=== PATIENT | female | born 1985 | race Caucasian/White ===

== ENCOUNTER → 2018-08-08 20:46 | Outpatient (CLI) | payer BC, SELFPAY | PROVIDERS: Visit Provider Nurse Practitioner Family | DX: J02.9 Acute pharyngitis, unspecified (principal) ==

== ENCOUNTER 2020-11-26 16:30 | Emergency (ER) | payer BC, SELFPAY ==
[2020-11-26 16:31] VITALS: BP 116/59; PULSE 96; RESP 18; TEMP 36.8; O2SAT 95; BMI 26.1
[2020-11-26 16:46] VITALS: BP 100/66; BP 105/66; BP 97/66; PULSE 103; PULSE 87; PULSE 93
--- NOTE | 2020-11-26 16:58 | HMH.EDFEV ---
ED Disposition Clinical Impression: UTI (urinary tract infection) Qualifiers: Urinary tract infection type: acute cystitis Hematuria presence: with hematuria Qualified Code(s): N30.01 - Acute cystitis with hematuria Disposition: Home, Self-Care Condition on Discharge: Good Prescriptions: cefUROXime axetiL [Ceftin 250mg Tablet] 250 mg PO BID #14 tab Transmission Status: Pending to [facility] #[id number] Referrals: Wnedy Cruz PA [Primary Care Provider] - - Critical Care Critical Care Time: No Attestation: On 11/26/20, the high probability of a clinically significant, sudden or life threatening deterioration of the following system(s) required my full and direct attention, intervention and personal management. The time I documented below is in addition to time spent performing reported procedures but includes the following listed in this critical care notation. Medical Decision Making - Medical Records Medical records reviewed: Yes: I reviewed the patient's medical records. - Tim Inquiry Pt receiving controlled substance: No Vital Signs: 11/26/20 16:31 11/26/20 16:46 Temperature 0 F L Temperature Source Oral Pulse Rate [Left Radial] 96 H Pulse Rate [Orthostatic Lying Right Radial] 87 Pulse Rate [Orthostatic Sitting Right Radial] 93 H Pulse Rate [Orthostatic Standing Right Radial] 103 H Respiratory Rate 18 Blood Pressure [Left Arm] 116/59 L Blood Pressure [Orthostatic Lying Right Arm] 105/66 L Blood Pressure [Orthostatic Sitting Right Arm] 100/66 L Blood Pressure [Orthostatic Standing Right Arm] 97/66 L Blood Pressure Mean [Left Arm] 78 Blood Pressure Source [Left Arm] Automatic Cuff Blood Pressure Position [Left Arm] Sitting 02 Sat by Pulse Oximetry 95 Oxygen Delivery Method Room Air - Lab Data Lab results reviewed: Yes: I reviewed the patient's lab results. Lab Results 11/26/20 17:10: Urine Color Yellow, Urine Appearance Clear, Urine pH 5.5, Ur Specific [place] 1.025, Urine Protein Negative, Urine Glucose (UA) Negative, Urine Ketones Trace, Urine Blood 3+, Urine Nitrate Negative, Urine Bilirubin Negative, Urine Urobilinogen 1.0, Ur Leukocyte Esterase 1+ A, Urine RBC 5-10, Urine WBC 3-5, Ur Squamous Epith Cells 3-5, Amorphous Sediment Trace, Urine Bacteria None, Urine Mucus Trace 11/26/20 17:10: Urine Opiates Screen Negative, Urine Methadone Screen Negative, Ur Barbituates Screen Negative, Ur Phencyclidine Scrn Negative, Ur Amphetamines Screen Negative, U Benzodiazepines Scrn Negative, Urine Cocaine Screen Negative, U Marijuana (THC) Screen Negative 11/26/20 17:15: WBC 11.9 H, RBC 4.91, Hgb 13.3, Hct 41.6, MCV 84.7, MCH 27.0, MCHC 31.9, RDW 14.0, Plt Count 331, MPV 8.0, Neut % (Auto) 91.2 H, Lymph % (Auto) 5.0 L, Bell % (Auto) 3.2, Eos % (Auto) 0.5, Baso % (Auto) 0.1, Neut # (Auto) 10.8 H, Lymph # (Auto) 0.6 L, Bell # (Auto) 0.4, Eos # (Auto) 0.1, Baso # (Auto) 0.0, Total Counted 100, Neutrophils % (Manual) 87 H, Lymphocytes % (Manual) 11, Monocytes % (Manual) 1 L, Eosinophils % (Manual) 1, Platelet Estimate Normal, RBC Morphology Normal 11/26/20 17:15: Sodium 140, Potassium 3.4 L, Chloride 103, Carbon Dioxide 24, Anion Gap 16.4 H, BUN 15, Creatinine 0.60, Estimated Creat Clear 145, Estimated GFR 115, Est GFR ( Amer) 139, Glucose 95, Calcium 9.5, Total Bilirubin 0.9, AST 38 H, ALT 33, Alkaline Phosphatase 130 H, Total Protein 8.2, Albumin 4.5, Globulin 3.7 H, Albumin/Globulin Ratio 1.2 11/26/20 17:15: Lactate 1.5 11/26/20 17:15: Influenza Type A Ag Negative, Influenza Type B Ag Negative 11/26/20 17:15: Group A Strep Rapid Negative Result diagrams: 11/26/20 17:15 11/26/20 17:15 Orders (Tests/Meds): ED MEDICATIONS Generic Name Dose Route Start Last Admin Trade Name Freq PRN Reason Stop Dose Admin Sodium Chloride 1,000 mls @ 999 mls/hr 11/26/20 17:00 11/26/20 17:14 Sod Chlor 0.9% 1000ml Bag IV 11/26/20 18:00 999 mls/hr .[id number] SANTOSH Administration Discontinue
[2020-11-26 17:14] LABS: Microscopic, Urine URINE MICROSCOPIC (MICROSCOPIC)
[2020-11-26 17:16] LABS: Appearance,Urine CLEAR (Clear); Bilirubin,Urine Negative (Negative); Blood, Urine 3+ (Negative); Color,Urine YELLOW (Yellow); Glucose,Urine (UA) Negative (Negative); Ketones,Urine TRACE (Negative); Leukocyte Esterase,Urine 1+ (Negative); Nitrate,Urine Negative (Negative); PH,Urine 5.5 (5.0-8.5); Protein,Urine Negative (Negative); Specific Gravity, Urine 1.025 (1.005-1.030)
[2020-11-26 17:21] LABS: Amorphous Sediment,Urine Trace /lpf; Mucus,Urine Trace /lpf
[2020-11-26 17:28] LABS: Amphetamine/Metha Screen,Urine Negative ng/ml (<1000)
[2020-11-26 17:29] LABS: Barbiturates Screen,Urine Negative ng/ml (<200); Benzodiazepines Screen,Urine Negative ng/ml (<200)
[2020-11-26 17:30] LABS: Cocaine Screen,Urine Negative ng/ml (<300); Methadone Screen,Urine Negative ng/ml (<300)
[2020-11-26 17:31] LABS: Cannabinoid Screen,Urine Negative ng/ml (<50)
[2020-11-26 17:32] LABS: Opiate Screen,Urine Negative ng/ml (<300); Phencyclidine Screen,Urine Negative ng/ml (<25)
[2020-11-26 17:40] LABS: Basophils % 0.1 % (0.1-2.0); Eosinophils # 0.1 K/mm3 (0.0-0.4); Eosinophils % 0.5 % (0.1-12.0); Hematocrit 41.6 % (37.0-47.0); Hemoglobin 13.3 g/dL (12.2-16.2); Lymphocytes # 0.6 K/mm3 (0.7-4.5); Mean Corpuscular HGB Conc 31.9 g/dL (31.8-35.4); Mean Corpuscular Volume 84.7 fl (81-99); Monocytes # 0.4 K/mm3 (0.1-1.0); Monocytes % 3.2 % (1.7-9.3); Neutrophils # 10.8 K/mm3 (1.8-7.8); Neutrophils % 91.2 % (37.0-80.0); Platelet Count 331 K/mm3 (142-424); Red Blood Count 4.91 M/mm3 (4.20-5.40); White Blood Count 11.9 K/mm3 (4.8-10.8)
[2020-11-26 17:44] LABS: MANUAL DIFFERENTIAL MANUAL DIFFERENTIAL (MANUAL DIFF)
[2020-11-26 17:49] LABS: Strep Scrn Group A (Rapid) Negative (Negative)
[2020-11-26 17:50] LABS: Eosinophils % 1 % (0-3); Lymphocytes % 11 % (10-50); Monocytes % 1 % (2-9); Neutrophils % 87 % (42-76); Platelet Estimate Normal; RBC Morphology Normal; Total Cells Counted 100
--- NOTE | 2020-11-26 17:50 | PC.NURSE ---
spoke with shalini in pharmacy, states ketorlac one time dose is safe in
[2020-11-26 17:53] LABS: Lactic Acid 1.5 mmol/L (0.7-2.1)
[2020-11-26 17:54] LABS: Alanine Aminotransferase 33 U/L (12-78); Albumin Level 4.5 g/dl (3.5-5.0); Albumin/Globulin Ratio 1.2 (1.1-1.8); Alkaline Phosphatase 130 U/L (38-126); Anion Gap 16.4 mEq/L (5-15); Aspartate Amino Transferase 38 U/L (14-36); Bilirubin,Total 0.9 mg/dl (0.2-1.3); Blood Urea Nitrogen 15 mg/dl (7-17); Calcium 9.5 mg/dl (8.4-10.2); Carbon Dioxide 24 mmol/L (22.0-30.0); Chloride 103 mmol/L (98-107); Creatinine Clearance Estimated 145 mL/min (50-200); Estimated Glomerular Filt Rate 115 ml/min (>60); GFR (African American) 139 ML/MIN (>60); Globulin 3.7 g/dL (1.3-3.2); Glucose 95 mg/dl (74-100); Potassium 3.4 mmoL/L (3.5-5.1); Sodium 140 mmol/L (136-145); Total Protein,Serum 8.2 g/dl (6.3-8.2)
[2020-11-26 18:43] VITALS: BP 100/65; PULSE 96; RESP 18; TEMP 36.8; O2SAT 97
== END 2020-11-26 18:43 | disposition home or self-care (01) ==
PROVIDERS: Emergency Provider Emergency Medicine; PCP Physician Assistant
DX: N30.01 Acute cystitis with hematuria (principal)
CPT/HCPCS: 80053; 80305; 81001; 83605; 85007; 85025; 87040; 87077; 87086; 87186; 87275; 87276; 87430; 96365; 96375; 99283